=== PATIENT | male | born 1995 | race Caucasian/White ===

== ENCOUNTER → 2017-11-10 | Outpatient (CLI) | payer BC, OTHER | LOC: M RAD 11:50 | DX: M25.541 Pain in joints of right hand (principal) ==

== ENCOUNTER → 2021-04-13 | Outpatient (CLI) | payer BC, OTHER | LOC: M RAD 15:21 | PROVIDERS: ATTEND Physician Assistant | DX: M79.601 Pain in right arm (principal) ==

== ENCOUNTER → 2023-03-01 | Outpatient (REF) | payer OTHER, BC ==
[2023-03-01 14:02] LABS: SEMEN APPEARANCE OPAQUE (OPAQUE); SEMEN VISCOSITY LIQUID (LIQUID); SEMEN VOLUME 2.2 ml (2.0-5.0); WBC CONCENTRATION <=1 M/ml (<=1 M/ml)
[2023-03-01 14:03] LABS: SPERM CONCENTRATION 97.8 M/ml (>=15.0)
== END ==
LOC: M LAB REF 13:29
PROVIDERS: ATTEND Physician Assistant
DX: Z31.41 Encounter for fertility testing (principal)

== ENCOUNTER → 2023-04-23 | Outpatient (REF) | payer OTHER, BC ==
[2023-04-23 14:39] LABS: SEMEN APPEARANCE OPAQUE (OPAQUE)
[2023-04-23 14:40] LABS: SEMEN VISCOSITY VISCOUS (LIQUID); SEMEN VOLUME 2.6 ml (2.0-5.0); SEMEN pH 8.5 (7.0-8.0); WBC CONCENTRATION >1 M/ml (<=1 M/ml)
[2023-04-23 14:41] LABS: SPERM CONCENTRATION 37.1 M/ml (>=15.0)
== END ==
LOC: M SMT 13:34
PROVIDERS: ATTEND Physician Assistant
DX: N46.9 Male infertility, unspecified (principal)